=== PATIENT | female | born 1980 | race Hispanic/Latino ===

== ENCOUNTER 2021-10-12 10:22 | Day surgery (SDC) | payer BC ==
[2021-10-10 10:50] VITALS: BP 145/83
[2021-10-10 11:09] LABS: BASOPHILS % (AUTO) 0.4 % (0.0-5.0); EOSINOPHILS % (AUTO) 2.2 % (0.0-8.0); HEMATOCRIT 39.5 % (36-48); LYMPHOCYTES % (AUTO) 28.4 % (21.0-51.0); MEAN CORPUSCULAR HEMOGLOBIN 29.2 pg (27.0-33.0); MEAN CORPUSCULAR HGB CONC 32.2 g/dL (32.0-36.0); MEAN CORPUSCULAR VOLUME 90.8 fL (79-99); MONOCYTES % (AUTO) 6.2 % (3.0-13.0); NEUTROPHILS % (AUTO) 62.5 % (40.0-77.0); PLATELET COUNT (AUTO) 448 K/uL (130-400); RED BLOOD CELL COUNT(AUTO) 4.35 MIL/uL (4.00-5.50); RED CELL DISTRIBUTION WIDTH 13.1 % (11.0-15.5); WHITE BLOOD COUNT (AUTO) 9.1 K/uL (4.8-10.8)
[2021-10-12] VITALS (13 sets, daily range): BP systolic 122–148; BP diastolic 69–82
[~2021-10-12] VITALS: Ht 160 cm; Wt 110.5 kg
[~2021-10-12 10:22] MED LIST: AMLO2.5T4 PO; ASPI-1443 PO; DROS4TAB PO
[2021-10-12] MEDS ORDERED: CALDOLOR 800MG+NS 250ML 250 ML IV ONE (12:20)
[2021-10-12] MEDS ORDERED: LACTATED RINGERS 1000ML 1,000 ML IV ONE (12:44)
[2021-10-12] MEDS: CEFAZOLIN SODIUM 1 GM VIAL ONE ×2 (13:36→14:00)
[2021-10-12] MEDS ORDERED: DEXAMETHASONE SOD PHOSPHATE 10MG/ML 1ML VIAL ONE (13:42)
[2021-10-12] MEDS ORDERED: GLYCOPYRROLATE 1 MG/5 ML SYRINGE ONE (13:42)
[2021-10-12] MEDS ORDERED: SUCCINYLCHOLINE CHLORIDE 20 MG/ML 10 ML VIAL ONE (13:42)
[2021-10-12] MEDS ORDERED: LIDOCAINE PF 100MG/5ML (2%) SYRINGE 5ML ONE (13:42)
[2021-10-12] MEDS ORDERED: NEOSTIGMINE 5MG/5ML SYR IV ONE (13:43)
[2021-10-12] MEDS ORDERED: MIDAZOLAM HCL 1 MG/ML 2ML VIAL ONE (13:43)
[2021-10-12] MEDS ORDERED: PROPOFOL 10 MG/ML 20ML VIAL IV ONE (13:43)
[2021-10-12] MEDS ORDERED: ONDANSETRON 4MG INJ ONE (13:43)
[2021-10-12] MEDS ORDERED: ROCURONIUM 10MG/1ML SYR 10 MG/ML ML ONE (13:43)
[2021-10-12] MEDS ORDERED: FENTANYL CITRATE PF 50 MCG/1 ML 2ML VIAL ONE (13:44)
== END 2021-10-12 16:00 | disposition home or self-care (01) ==
LOC: DAH 10:22
PROVIDERS: ATTEND Obstetrics & Gynecology
DX: N92.0 Excessive and frequent menstruation with regular cycle (principal); Z20.822 Contact with and (suspected) exposure to COVID-19; N81.2 Incomplete uterovaginal prolapse; I10 Essential (primary) hypertension; E78.00 Pure hypercholesterolemia, unspecified; E03.9 Hypothyroidism, unspecified; E66.9 Obesity, unspecified; F41.9 Anxiety disorder, unspecified; E78.5 Hyperlipidemia, unspecified; Z98.890 Other specified postprocedural states; Z82.49 Family history of ischemic heart disease and other diseases of the circulatory system; Z83.3 Family history of diabetes mellitus; Z72.89 Other problems related to lifestyle; Z86.73 Personal history of transient ischemic attack (TIA), and cerebral infarction without residual deficits; Z79.01 Long term (current) use of anticoagulants; Z68.43 Body mass index [BMI] 50.0-59.9, adult
CPT/HCPCS: 36415; 58563; 84703; 85025; 86850; 86900; 86901; 87635; A4215; A4216; A4221; A4222; A4223 ×2; A4351; A4355; A4663; A6260; C9803; J0330; J0690; J1100; J1741; J2001; J2250; J2405; J2704; J2710; J3010; J3490; J7030 ×2; J7120